=== PATIENT | male | born 1940 | race Caucasian/White ===

== ENCOUNTER → 2017-09-07 | Day surgery (SDC) | payer OTHER ==
[~2017-09-07] VITALS: Ht 180.3 cm; Wt 88.9 kg
[~2017-09-07] MED LIST: *RESP: ALBUTEROL 2.5 MG/3 ML NEB (PRN) PERIprocedural Use ONLY NEB ONE; ADVA250A INH; ASPI1TAB57 PO; ATEN25TA PO; AZEL1SPR2 EACH NARE; CHLORHEXIDINE GLUCONATE 2 % 1 PACK (2 CLOTHS) TOPICAL PRN; CLOP75TA PO; DEXAMETHASONE SOD PHOS 4 MG/ML VIAL IV ONE; DO NOT ADM ANY ANTICOAGULANT DRUGS PRN; EPINEPHrine HCL (1:1000) 1 MG/ML VIAL ONE; FAMOTIDINE 20 MG/2 ML VIAL ONE; FISH100020 PO; FLUT1INH INH; FLUT1SPR5 EACH NARE; INSULIN HUMAN REGULAR 1,000 UNITS/10 ML VIAL SQ PRN; LACTATED RINGER'S 1000 ML IV PRN; LIDOCAINE HCL 1% PF 5 ML SYRINGE OTHER ONE; LIDOCAINE HCL 2% 50 ML VIAL ONE; LOVA40TA PO; METOPROLOL TARTRATE 25 MG TAB PO PRN; MULT-65 PO; NITR1SUB3 SL; ONDANSETRON HCL 4 MG/2 ML VIAL IV PUSH ONE; PATA0.2S EACH EYE; PHENYLEPH/NS 1000 MCG/10 ML SYR IV ONE; POVIDONE IODINE 5% (ANTISEPSIS KIT) 4 APPLICATIONS EACH NARE PRN; PROPOFOL 200 MG/20 ML AMP IV ONE; RANI150T PO; RESP: ALBUTEROL 2.5 MG/3 ML NEB (SCH) ONE; SODIUM CHLORID 0.9% 500 ML IV PRN; SODIUM CHLORIDE 0.9% 20 ML VIAL ONE; SPIRCAP INH; TEMA30CA PO; THEO200T11 PO; ePHEDrine/NS 25 MG/5 ML SYR IV ONE
[2017-09-07 07:05] LABS: AUTOMATED NEUTROPHIL # 4.2 TH/MM3 (1.8-7.7); BASOPHIL # 0.1 TH/MM3 (0-0.2); BASOPHIL % 0.8 % (0.0-2.0); EOSINOPHIL # 0.5 TH/MM3 (0-0.4); EOSINOPHIL % 6.8 % (0.0-4.0); HEMATOCRIT 49.8 % (39.0-51.0); HEMO FLAGS DIFF FINAL; LYMPH % 18.5 % (9.0-44.0); LYMPHOCYTE # 1.3 TH/MM3 (1.0-4.8); MEAN CELL VOLUME 93.7 FL (80.0-100.0); MEAN CORPUSCULAR HEMOGLOBIN 31.6 PG (27.0-34.0); MEAN CORPUSCULAR HGB CONC 33.7 % (32.0-36.0); MONO % 15.6 % (0.0-8.0); NEUT % 58.3 % (16.0-70.0); PLATELET COUNT 160 TH/MM3 (150-450); RED BLOOD COUNT 5.31 MIL/MM3 (4.50-5.90); RED CELL DISTRIBUTION WIDTH 13.8 % (11.6-17.2); WHITE BLOOD COUNT 7.2 TH/MM3 (4.0-11.0)
[2017-09-07 07:14] LABS: APTT (PATIENT) 29.3 SEC (24.3-30.1); INTERNATIONAL NORMALIZED RATIO 1.1 RATIO; PROTHROMBIN TIME - PATIENT 11.8 SEC (9.8-11.6)
[2017-09-07 10:40] VITALS: BP 112/71; PULSE 64; RESP 20; TEMP 97.5; O2SAT 93
--- NOTE | 2017-09-07 10:53 | MR ---
cc: ASTRID RESENDIZ M.D. DATE: 09/07/2017 PROCEDURE Fiberoptic bronchoscopy flexible. REASON FOR BRONCHOSCOPY Bilateral lung nodules, rule out underlying malignancy, rule out chronic inflammatory process. DETAILS OF PROCEDURE Fiberoptic bronchoscopy performed via LMA. Vocal cords intact. Trachea moderately to severely hyperemic. Renuka sharp. Right upper, middle and lower lobes, left upper and lower lobes inspected. Diffuse hyperemia throughout. Thick mucoid secretion and plugging noted. Secretions quite difficult to remove, however, old plugs were removed throughout the tracheobronchial tree. Washings obtained from both sides of the bronchial tree for routine, TB, fungal cultures, cytological exam. No obstruction or mass lesion identified. Cytologic brush biopsies left lower lobe obtained which has significantly more hyperemia than the rest of the tracheobronchial tree. Procedure well-tolerated. Patient transferred to Recovery in stable condition. IMPRESSION 1. Severe tracheobronchitis. 2. No obstruction or mass lesion. 3. Thick mucoid secretion and plugging. 4. Samples obtained as above. 5. Procedure well-tolerated. 6. Patient transferred to Recovery in stable condition. MD MICHAEL Thomson/HUBER /8:44 AM /10:36 AM
--- NOTE | 2017-09-07 18:42 | EKG ---
Date Performed: 09/07/2017 Time Performed: 07:04:24 PTAGE: 76 years EKG: Sinus rhythm NORMAL ECG Since PREVIOUS TRACING , no significant change noted PREVIOUS TRACIN08/19/2013 05.51 DOCTOR: Ant Hannon Interpretating Date/Time 09/07/2017 18:40:46
== END | disposition home or self-care (01) ==
LOC: HSDC 06:17
PROVIDERS: ATTEND Internal Medicine Sleep Medicine
DX: J40 Bronchitis, not specified as acute or chronic (principal); R91.8 Other nonspecific abnormal finding of lung field; I10 Essential (primary) hypertension; E78.5 Hyperlipidemia, unspecified; J44.9 Chronic obstructive pulmonary disease, unspecified
CPT/HCPCS: 00520; 31623; 85025; 85610; 85730; 93005; 94664; J1100; J2370; J2405; J7120; J7613; J0171